=== PATIENT | male | born 1995 | race Caucasian/White ===

== ENCOUNTER 2017-04-09 17:46 | Emergency (ER) | payer BC, OTHER ==
[2017-04-09 18:38] VITALS: BP 147/84
--- NOTE | 2017-04-09 19:12 | UC ---
Skin Complaint HPI - HPI Summary HPI Summary: The patient comes in today for: 1. Rash on lower legs, and sore on his mouth: Onset: Rash started two weeks ago. Today, the mouth lesions started. Palliative/provocative: Benadryl makes the itching better. Swallowing makes the throat more sore. Quality: Itching of the legs and sore throat. Region: Lower legs and mouth Severity: 11/30 Time: Constant. 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 * - History of Current Complaint Chief Complaint: UCRash Time Seen by Provider: 04/09/17 19:05 Stated Complaint: RASH Hx Obtained From: Patient - Allergy/Home Medications Allergies/Adverse Reactions: Allergies Allergy/AdvReac Type Severity Reaction Status Date / Time Amoxicillin Allergy Severe Hives Verified 04/09/17 18:38 Review of Systems Skin: Rash Eyes: Negative ENT: Sore Throat Respiratory: Negative Cardiovascular: Negative Gastrointestinal: Negative Genitourinary: Negative All Other Systems Reviewed And Are Negative: Yes PMH/Surg Hx/FS Hx/Imm Hx Previously Healthy: No - ADHD Rx taken at school - Surgical History Surgical History: None - Family History Known Family History: Positive: Diabetes Negative: Hypertension - Social History Occupation: Employed Full-time Alcohol Use: Occasionally Alcohol Amount: 1 day a week Substance Use Type: None Smoking Status (MU): Never Smoked Tobacco Physical Exam Triage Information Reviewed: Yes Appearance: Well-Appearing, No Pain Distress, Well-Nourished Vital Signs: Initial Vital Signs Temp 98.5 F 04/09/17 18:31 Pulse 80 04/09/17 18:31 Resp 16 04/09/17 18:31 BP 147/84 04/09/17 18:31 Pulse Ox 100 04/09/17 18:31 Vital Signs Reviewed: Yes Eyes: Positive: Conjunctiva Clear. Negative: Discharge ENT: Positive: Hearing grossly normal, Other: - The area the aptient pointed out as having soreness was at the back of the left tongue. He described lingular tonsils, but there was no signs of white papillitis or aphthous ulcerations.. Negative: Pharyngeal erythema, Nasal congestion, Nasal drainage, TM bulging, TM dull, TM red, Tonsillar swelling, Tonsillar exudate Dental: Negative: Gross Decay/Caries @, Dental Fracture @ Neck: Negative: Supple, Nontender, No Lymphadenopathy, Nuchal Rigidity Respiratory: Positive: Chest non-tender, Lungs clear, No respiratory distress, No accessory muscle use. Negative: Rhonchi, Wheezing Cardiovascular: Positive: RRR, No Murmur Abdomen Description: Positive: Nontender, No Organomegaly, Soft. Negative: Distended, Guarding Musculoskeletal: Positive: Strength Intact, ROM Intact, No Edema Neurological: Positive: Alert, Muscle Tone Normal Psychological: Positive: Age Appropriate Behavior, Consolable Skin: Negative: rashes - He had erythematous papules of the dorsum of the left foot. Lesions were 1-2 mm in diameter and 14 in number. ON his lower anterior legs, there were signs of excoriations and erythematous macules. Course/Dx - Course Course Of Treatment: Patient told that I only saw lingular tonsils and no obvious white papulitis, but they could still be inflammed--no signs of an allergic reaction. He was told of his treatment options. - Differential Diagnoses - Skin Complaint Differential Diagnoses: Cellulitis, Contact Dermatitis, Impetigo - Diagnoses Provider Diagnoses: Lingular tonsilar papillitis. Rhus dermatitis Discharge - Discharge Plan Condition: Stable Disposition: HOME Patient Education Materials: Contact Dermatitis (ED), Poison Margarita (ED) Referrals: Renaldo Palmer MD [Primary Care Provider] - 1 Week (Please see your primary care provider in about one to two weeks to see how well you are doing. If you get worse, please be seen sooner.)
== END 2017-04-09 19:47 | disposition home or self-care (01) ==
LOC: UCCORT 17:46
DX: J35.1 Hypertrophy of tonsils (principal); L23.7 Allergic contact dermatitis due to plants, except food; Z88.1 Allergy status to other antibiotic agents; F90.9 Attention-deficit hyperactivity disorder, unspecified type
CPT/HCPCS: 99212; G0463